=== PATIENT | male | born 1965 | race Caucasian/White ===

== ENCOUNTER 2018-06-16 12:53 | Inpatient (IN) | payer OTHER ==
[2018-06-16 13:27] VITALS: BMI 21.5
--- NOTE | 2018-06-16 13:46 | HP ---
COWS - Scale Resting Pulse: 1= [place] 81-100 Sweatin=Flushed/Facial Moisture Restless Observation: 1= Difficult to Sit Still Pupil Size: 0= Normal to Room Light Bone or Joint Aches: 2= Severe Diffuse Aches Runny Nose/ Eye Tearin= Runny Nose/Eyes GI Upset > 30mins: 2= Nausea/Diarrhea Tremor Observation: 0= None Yawning Observation: 0= None Anxiety or Irritability: 4=Extreme Anxiety Goose Flesh Skin: 0=Smooth Skin COWS Score: 14 CIWA Score - Admission Criteria OASAS Guidelines: Admission for Medically Managed Detox: Requires at least one of the followin. CIWA greater than 12 2. Seizures within the past 24 hours 3. Delirium tremens within the past 24 hours 4. Hallucinations within the past 24 hours 5. Acute intervention needed for co occurring medical disorder 6. Acute intervention needed for co occurring psychiatric disorder 7. Severe withdrawal that cannot be handled at a lower level of care (continued vomiting, continued diarrhea, abnormal vital signs) requiring intravenous medication and/or fluids 8. Admission ROS [facility] Allergies/Adverse Reactions: Allergies Allergy/AdvReac Type Severity Reaction Status Date / Time No Known Allergies Allergy Verified 06/16/18 14:38 History of Present Illness: patient here requesting detox from heroin use , reports for pain due to kidney stones , currently 10 bags/day via inhalation , denies IVDU , first use x 6 mo ago , latest use last night , current symptoms as above. cannabis : daily since age 26 xanax : reports 1 mg - 2 mg for insomnia, latest use 1 week ago etoh : 1 bottle wine last night , not daily , 3 x /week , denies symptoms if not drinking, denies seizures , blackouts, tremors , + DWI 8 years ago , has DL . PMHX : nephrolithiasis since age 23 recurrently , most recently 3 weeks ago had lithotripsy x 2 PShx : left knee ACL age 20 , nephrolithiasis age 23 , 30, 37 , 40 ,43 . PSych : anxiety tobacco use: 1-2 cigars/day since 1 year , 29 x 1 ppd SHx : lives alone , works as little . Exam Limitations: No Limitations - Ebola screening Have you traveled outside of the country in the last 21 days: No Have you had contact with anyone from an Ebola affected area: No Have you been sick,other than usual withdrawal symptoms: No - Review of Systems Constitutional: See HPI EENT: reports: Other (reading glasses , denies dysphagia) Respiratory: reports: No Symptoms reported Cardiac: reports: No Symptoms Reported GI: reports: See HPI : reports: See HPI Musculoskeletal: reports: Muscle Pain Integumentary: reports: No Symptoms Reported Neuro: reports: No Symptoms reported Endocrine: reports: No Symptoms Reported Psychiatric: reports: Orientated x3, Anxious Patient History - Smoking Cessation Smoking history: Current every day smoker Have you smoked in the past 12 months: Yes Aproximately how many cigarettes per day: 20 Cigars Per Day: 2 Hx Chewing Tobacco Use: No Initiated information on smoking cessation: No - Substances Abused Heroin Route: Inhalation Frequency: Daily Amount used: 10 bags Age of first use: 53 Date of Last Use: 06/15/18 Xanax Route: Oral Frequency: 3-6 times per week Amount used: 3-4 mg. Age of first use: 51 Date of Last Use: 05/26/18 Alcohol-vodka Route: Oral Frequency: Daily Amount used: 5 shots Age of first use: 17 Date of Last Use: 06/16/18 Family Disease History - Family Disease History Family Disease History: Diabetes: Father, Heart Disease: Father, CA: Mother ( lymphoma ), Other: Brother (4, 1 w/ Non-Hodgkin's lymphoma ), Sister (1 ) Admission Physical Exam S - Vital Signs Vital Signs: Vital Signs - 24 hr 06/16/18 13:22 Temperature 97.1 F L Pulse Rate 97 H Respiratory 20 Rate Blood Pressure 122/71 - Physical General Appearance: Yes: Disheveled, Mild Distress HEENTM: Yes: EOMI, Muffled/Hoarse Voice, Other (edentulous , many misisng teeth all upper) Respiratory: Yes: Chest Non-Tender, Lungs Clear, Normal Breath Sounds Neck: Yes: No masses,lesions,Nodules, Trachea in good position Breast: Yes: Breast Exam Deferred Cardiology: Yes: Regular Rhythm, Regular Rate, S1, S2, Tachycardia Abdominal: Yes: Normal Bowel Sounds, Soft Genitourinary: Yes: Pain (see HPI) Back: Yes: Normal Inspection, CVA Tenderness (R), CVA Tenderness (L) Musculoskeletal: Yes: full range of Motion, Gait Steady Extremities: Yes: Normal Capillary Refill, Non-Tender Neurological: Yes: Motor Strength 5/5 - Diagnostic (1) Opioid dependence Current Visit: Yes Status: Acute Qualifiers: Substance use status: in withdrawal Qualified Code(s): F11.23 - Opioid dependence with withdrawal (2) Nicotine dependence Current Visit: Yes Status: Acute Qualifiers: Nicotine product type: other (3) Cannabis dependence Current Visit: Yes Status: Chronic (4) Bilateral nephrolithiasis Current Visit: Yes Status: Chronic BHS Breath Alcohol Content Breath Alcohol Content: 0 Urine Drug Screen - Results Drug Screen Negative: No Urine Drug Screen Results: THC-Marijuana, OPI-Opiates, FEN-Fentanyl
[2018-06-16] MEDS ORDERED: POTASSIUM CITRATE/CITRIC ACID 2 MEQ/ML ML PO SCH (14:00)
[2018-06-16] MEDS ORDERED: MAG HYDROX/AL HYDROX/SIMETH 30 ML UNIT-DOSE CUP PO PRN (14:01)
[2018-06-16] MEDS ORDERED: MAGNESIUM CITRATE 300 ML BOTTLE PO PRN (14:01)
[2018-06-16] MEDS ORDERED: NICOTINE POLACRILEX 2 MG GUM BC PRN (14:01)
[2018-06-16] MEDS ORDERED: MAGNESIUM HYDROX 2400MG/30ML ORAL SUSPENSION 30 ML CUP PO PRN (14:01)
[2018-06-16] MEDS ORDERED: MENTHOL/PHENOL 1 EACH UD MM PRN (14:01)
[2018-06-16] MEDS ORDERED: guaiFENesin/D-METHORPHAN HB 10 ML UNIT-DOSE CUPS PO PRN (14:01)
[2018-06-16] MEDS ORDERED: ACETAMINOPHEN 325 MG TABLET (FP) PO PRN (14:01)
[2018-06-16] MEDS ORDERED: P-EPHED 60MG/TRIPROLIDI 2.5MG TABLET PO PRN (14:01)
[2018-06-16] MEDS ORDERED: METHADONE HCL 10 MG TABLET (FOR DETOX USE ONLY) PO ONE ×2 (16:45→23:00)
[2018-06-16] MEDS: CEPHALEXIN MONOHYDRATE 500 MG CAPSULE (UD) PO SCH ×2 (17:24→22:15)
[2018-06-16] MEDS ORDERED: diazePAM 5 MG TABLET PO PRN (18:33)
[2018-06-16] MEDS: POTASSIUM CITRATE/CITRIC ACID 2 MEQ/ML ML PO SCH ×2 (18:45→22:17)
[2018-06-16] MEDS ORDERED: diazePAM 5 MG TABLET PO ONE (19:00)
[2018-06-16] MEDS ORDERED: MELATONIN 5 MG TABLETS PO PRN (22:00)
[2018-06-16] MEDS: THIAMINE HCL 100 MG TABLET (FP) PO SCH (22:14)
[2018-06-16] MEDS: diazePAM 5 MG TABLET PO SCH (22:14)
[2018-06-17] MEDS: CEPHALEXIN MONOHYDRATE 500 MG CAPSULE (UD) PO SCH ×3 (05:53→22:13)
[2018-06-17] MEDS: diazePAM 5 MG TABLET PO SCH ×3 (05:53→22:13)
--- NOTE | 2018-06-17 07:42 | CONSULT ---
[facility] Psychiatric Consult - Data Date of interview: 06/17/18 Admission source: [facility] Identifying data: This is a 53 years old male, , has no children, living with family, unemployed, with no financial support, with no psychiatric hospitalization history, with long history of Alcohol, Xanax, Opioids and Nicotine dependence/abuse.Patient is reporting Alcohol and Opioids withdrawal symptoms and seeking for detox, denies suicidal, homicidal history. Substance Abuse History: Patient reports long, chronic history of Alcohol abuse , Opiopid dependence, Xanax dependex and Nicotine dependence as well.Reports multiple attempts to quit but with no success, motivatedto be referred to outpatient substance abuse facility upopn discharge, Medical History: Bilateral Nephrolithiasis, L. Knee ACLinjury and surgery history. Psychiatric History: Patient reports history of anxiety and depression, reports taking Trazodone 100mg po qhs prior to admission with good response and motivated to continue Trazodone during detox protocol. Physical/Sexual Abuse/Trauma History: Denies Additional Comment: Trazodone 100mg po qhs Mental Status Exam - Mental Status Exam Alert and Oriented to: Person Cognitive Function: Fair Patient Appearance: Unkempt Mood: Sad Affect: Mood Congruent Patient Behavior: Cooperative Speech Pattern: Clear Voice Loudness: Mildly Soft/Quiet Thought Process: Circumstantial, Goal Oriented Thought Disorder: Being Controlled Hallucinations: Denies Suicidal Ideation: Denies Homicidal Ideation: Denies Insight/Judgement: Fair Appetite: Weight loss Muscle strength/Tone: Mild Hypotonicity Gait/Station: Shuffling Additional Comments: Trazodone 100mg po qhs Psychiatric Findings - Problem List ([place] 1, 2,3) (1) Nicotine dependence Current Visit: Yes Status: Acute Qualifiers: Nicotine product type: other (2) Opioid dependence Current Visit: Yes Status: Acute Qualifiers: Substance use status: in withdrawal Qualified Code(s): F11.23 - Opioid dependence with withdrawal (3) Bilateral nephrolithiasis Current Visit: Yes Status: Chronic (4) Cannabis dependence Current Visit: Yes Status: Chronic - Initial Treatment Plan Initial Treatment Plan: Trazodone 100mg po qhs
[2018-06-17] MEDS: IBUPROFEN 400 MG TABLET (FP) PO PRN (09:44)
[2018-06-17] MEDS: POTASSIUM CITRATE/CITRIC ACID 2 MEQ/ML ML PO SCH ×4 (09:45→22:12)
[2018-06-17] MEDS: diazePAM 5 MG TABLET PO PRN (09:45)
[2018-06-17] MEDS: PRENATAL VITAMINS W/ FOLIC ACID TABLET (FP) PO SCH (09:48)
[2018-06-17] MEDS ORDERED: METHADONE HCL 10 MG TABLET (FOR DETOX USE ONLY) PO ONE (10:00)
[2018-06-17 10:34] LABS: ALK PHOS 74 U/L (45-117); ANION GAP 9 MMOL/L (8-16); BILIRUBIN,TOTAL 0.9 mg/dL (0.2-1); BLOOD UREA NITROGEN 9 mg/dL (7-18); CALCIUM 9.5 mg/dL (8.5-10.1); CHLORIDE 104 mmol/L (98-107); CO2 26 mmol/L (21-32); CREATININE 0.9 mg/dL (0.55-1.3); GLUCOSE,RANDOM 98 mg/dL (74-106); SGOT/AST 18 U/L (15-37); SGPT/ALT 45 U/L (13-61); SODIUM 138 mmol/L (136-145); TOT PROT 7.5 g/dl (6.4-8.2)
[2018-06-17 10:36] LABS: HEMATOCRIT 45.5 % (35.4-49); HEMOGLOBIN 15.5 GM/dL (11.7-16.9); MCHC 34.1 g/dl (32.0-35.9); MEAN CELL VOLUME 96.5 fl (80-96); MEAN PLT VOLUME 9.4 fl (7.5-11.1); PLATELET COUNT 226 K/MM3 (134-434); RBC 4.72 M/mm3 (4.00-5.60); RDW 14.4 % (11.9-15.9); WHITE BLOOD COUNT 8.6 K/mm3 (4.0-10.0)
--- NOTE | 2018-06-17 10:54 | PN ---
[facility] COWS - Scale Resting Pulse: 0= [place] 80 or Below Sweatin= No chills or Flushing Restless Observation: 1= Difficult to Sit Still Pupil Size: 0= Normal to Room Light Bone or Joint Aches: 4=Acute Joint/Muscle Pain Runny Nose/ Eye Tearin= None GI Upset > 30mins: 0= None Tremor Observation of Outstretched Hands: 0= None Yawning Observation: 0= None Anxiety or Irritability: 4=Extreme Anxiety Goose Flesh Skin: 3=Piloerection COWS Score: 12 BHS Progress Note (SOAP) Subjective: Body Aches, Anxious, Agitated, Interrupted Sleep. Patient Reports that he accidentally "Stubbed" the Big toe of his Right Foot earlier this AM on edge of door to his room. Objective: PATIENT A & O X 3, OBSERVED AMBULATING ON UNIT. IN NO ACUTE DISTRESS. SMALL ABRASION NOTED AT MEDIAL ASPECT OF BIG TOES OF RIGHT FOOT. SLIGHT SWELLING NOTED SURROUNDING SITE. NO BLEEDING OR UNUSUAL DISCHARGE NOTED AT SITE. 06/17/18 10:49 Vital Signs Temperature 96.4 F L 06/17/18 09:16 Pulse Rate 79 06/17/18 09:16 Respiratory Rate 18 06/17/18 09:16 Blood Pressure 117/74 06/17/18 09:16 O2 Sat by Pulse Oximetry (%) Laboratory Tests 06/17/18 06/17/18 06:00 06:00 WBC 8.6 RBC 4.72 Hgb 15.5 Hct 45.5 MCV 96.5 H MCH 33.0 MCHC 34.1 RDW 14.4 Plt Count 226 MPV 9.4 Sodium 138 Potassium 4.0 Chloride 104 Carbon Dioxide 26 Anion Gap 9 BUN 9 Creatinine 0.9 Creat Clearance w eGFR > 60 Random Glucose 98 Calcium 9.5 Total Bilirubin 0.9 AST 18 ALT 45 Alkaline Phosphatase 74 Total Protein 7.5 Albumin 4.0 LABS NOTED. RPR RESULTS PENDING. 06/17/18 10:52 06/17/18 10:54 Assessment: 06/17/18 10:49 WITHDRAWAL SYMPTOMS. Plan: CONTINUE DETOX. BACITRACIN FOR ABRASION ON BIG TOE OF RIGHT FOOT. R.I.C.E. PROTOCOL FOR INJURY OF BIG TOE OF RIGHT FOOT. PRN IBUPROFEN FOR PAIN OF BIG TOE OF RIGHT FOOT. X-RAY OF BIG TOE / 1ST METATARSAL BONE OF RIGHT TO R/O FRACTURE.
[2018-06-17] MEDS: BACITRACIN 0.9 GM PACKET TP SCH ×2 (13:03→23:08)
[2018-06-17] MEDS: traZODone HCL 100 MG TABLET (FP) PO SCH (22:12)
[2018-06-17] MEDS: THIAMINE HCL 100 MG TABLET (FP) PO SCH (22:12)
--- NOTE | 2018-06-17 23:28 | PN ---
S Progress Note Note: Patient w/ 10 mm x 5 mm superficial laceration at (R) great toe which occurred after stubbing toe earlier today. Now c/o foot being run-over by a rolling walker, with increased pain in area. No wound drainage, or swelling. Cap refill < 3 sec. Ecchymosis noted surrounding wound. Pedal pulse present. FROM toe. No crepitus of (R) great toe or increased tenderness when manipulated. No increased tenderness, erythema, discoloration, or swelling in other areas of foot. FWB. Gait steady. A: Disturbance of pre-existing laceration of (R) great toe. Plan: Bacitracin to site BID Encourage elevation. Ice to area, prn Pain medication, as prescribed, prn F/u, as needed.
[2018-06-18] MEDS: CEPHALEXIN MONOHYDRATE 500 MG CAPSULE (UD) PO SCH ×3 (05:36→22:35)
[2018-06-18] MEDS: diazePAM 5 MG TABLET PO PRN (05:38)
[2018-06-18] MEDS ORDERED: METHADONE HCL 5 MG TABLET (FOR DETOX USE ONLY) PO ONE (10:00)
[2018-06-18] MEDS: PRENATAL VITAMINS W/ FOLIC ACID TABLET (FP) PO SCH (10:29)
[2018-06-18] MEDS: IBUPROFEN 400 MG TABLET (FP) PO PRN (10:29)
[2018-06-18] MEDS: NICOTINE 14 MG/24 HOURS TOPICAL PATCH TD SCH (10:30)
[2018-06-18] MEDS: diazePAM 5 MG TABLET PO SCH ×2 (10:30→22:34)
[2018-06-18] MEDS: POTASSIUM CITRATE/CITRIC ACID 2 MEQ/ML ML PO SCH ×4 (10:31→22:37)
[2018-06-18] MEDS: BACITRACIN 0.9 GM PACKET TP SCH ×2 (10:31→22:34)
[2018-06-18] MEDS: CYCLOBENZAPRINE HCL 10 MG TABLET (FP) PO PRN (13:16)
--- NOTE | 2018-06-18 13:50 | PN ---
[facility] COWS - Scale Resting Pulse: 2= [place] 101-120 Sweatin= No chills or Flushing Restless Observation: 1= Difficult to Sit Still Pupil Size: 0= Normal to Room Light Bone or Joint Aches: 4=Acute Joint/Muscle Pain Runny Nose/ Eye Tearin= None GI Upset > 30mins: 2= Nausea/Diarrhea Tremor Observation of Outstretched Hands: 0= None Yawning Observation: 1= 1-2x During Session Anxiety or Irritability: 4=Extreme Anxiety Goose Flesh Skin: 0=Smooth Skin COWS Score: 14 S Progress Note (SOAP) Subjective: Anxious, Body Aches, H/A, Diarrhea. Objective: PATIENT A & O X 3, OBSERVED AMBULATING ON UNIT. IN NO ACUTE DISTRESS. 06/18/18 13:49 Vital Signs Temperature 97.5 F L 06/18/18 13:32 Pulse Rate 119 H 06/18/18 13:32 Respiratory Rate 18 06/18/18 13:32 Blood Pressure 121/72 06/18/18 13:32 O2 Sat by Pulse Oximetry (%) Laboratory Tests 06/17/18 06/17/18 06/17/18 06:00 06:00 06:00 WBC 8.6 RBC 4.72 Hgb 15.5 Hct 45.5 MCV 96.5 H MCH 33.0 MCHC 34.1 RDW 14.4 Plt Count 226 MPV 9.4 Sodium 138 Potassium 4.0 Chloride 104 Carbon Dioxide 26 Anion Gap 9 BUN 9 Creatinine 0.9 Creat Clearance w eGFR > 60 Random Glucose 98 Calcium 9.5 Total Bilirubin 0.9 AST 18 ALT 45 Alkaline Phosphatase 74 Total Protein 7.5 Albumin 4.0 RPR Titer Nonreactive LABS NOTED. Assessment: 06/18/18 13:49 WITHDRAWAL SYMPTOMS. Plan: CONTINUE DETOX. INCREASE DAILY PO FLUID INTAKE. PRN IMMODIUM FOR DIARRHEA. PRN FLEXERIL PO FOR BODY ACHES / MUSCLE SPASMS. PRN IBUPROFEN FOR PAIN IN BIG TOE OF RIGHT FOOT. CONTINUE BACITRACIN BID FOR WOUND ON BIG TOE OF RIGHT FOOT AND R.I.C.E. PROTOCOL FOR INJURY OF BIG TOE OF RIGHT FOOT. AFTER INCIDENT LAST NIGHT IN WHICH PATIENT REPORTED THAT THE BIG TOE OF HIS RIGHT FOOT WAS "RUN OVER BY A WALKER," PATIENT ADVISED TO HAVE X-RAY OF BIG TOE OF RIGHT FOOT DONE NOW. PATIENT AGREED TO DO SO. RESULTS PENDING.
[2018-06-18] MEDS: traZODone HCL 100 MG TABLET (FP) PO SCH (22:34)
[2018-06-18] MEDS: THIAMINE HCL 100 MG TABLET (FP) PO SCH (22:37)
[2018-06-19] MEDS: CEPHALEXIN MONOHYDRATE 500 MG CAPSULE (UD) PO SCH ×3 (06:15→22:16)
[2018-06-19] MEDS ORDERED: METHADONE HCL 10 MG TABLET (FOR DETOX USE ONLY) PO ONE (10:00)
[2018-06-19] MEDS: PRENATAL VITAMINS W/ FOLIC ACID TABLET (FP) PO SCH (10:39)
[2018-06-19] MEDS: diazePAM 5 MG TABLET PO SCH ×2 (10:40→22:16)
[2018-06-19] MEDS: POTASSIUM CITRATE/CITRIC ACID 2 MEQ/ML ML PO SCH ×4 (10:40→22:16)
[2018-06-19] MEDS: BACITRACIN 0.9 GM PACKET TP SCH ×2 (10:40→22:16)
[2018-06-19] MEDS: IBUPROFEN 400 MG TABLET (FP) PO PRN (10:41)
[2018-06-19] MEDS: CYCLOBENZAPRINE HCL 10 MG TABLET (FP) PO PRN (10:41)
[2018-06-19] MEDS: NICOTINE 14 MG/24 HOURS TOPICAL PATCH TD SCH (10:42)
--- NOTE | 2018-06-19 12:03 | PN ---
[facility] Progress Note (SOAP) Subjective: sweats anxiety Objective: 06/19/18 12:03 Vital Signs Temperature 98.2 F 06/19/18 09:15 Pulse Rate 105 H 06/19/18 09:15 Respiratory Rate 18 06/19/18 09:15 Blood Pressure 135/78 06/19/18 09:15 O2 Sat by Pulse Oximetry (%) aaox3 ambulating no acute distress Assessment: 06/19/18 12:03 withdrawal sx Plan: continue detox increase fluids d/c in am
[2018-06-19] MEDS: THIAMINE HCL 100 MG TABLET (FP) PO SCH (22:15)
[2018-06-19] MEDS: traZODone HCL 100 MG TABLET (FP) PO SCH (22:16)
[2018-06-20] MEDS: CYCLOBENZAPRINE HCL 10 MG TABLET (FP) PO PRN (03:34)
[2018-06-20] MEDS: CEPHALEXIN MONOHYDRATE 500 MG CAPSULE (UD) PO SCH (05:40)
[2018-06-20] MEDS ORDERED: METHADONE HCL 5 MG TABLET (FOR DETOX USE ONLY) PO ONE (06:00)
[2018-06-20] MEDS: PRENATAL VITAMINS W/ FOLIC ACID TABLET (FP) PO SCH (09:09)
[2018-06-20] MEDS: BACITRACIN 0.9 GM PACKET TP SCH (09:10)
[2018-06-20] MEDS: POTASSIUM CITRATE/CITRIC ACID 2 MEQ/ML ML PO SCH (09:13)
[2018-06-20 09:42] VITALS: BP 121/79; PULSE 100; TEMP 97.8
[2018-06-20] MEDS ORDERED: diazePAM 5 MG TABLET PO SCH (10:00)
--- NOTE | 2018-06-20 10:41 | DS ---
[facility] Detox Discharge Summary Admission Date: 06/16/18 Discharge Date: 06/20/18 - History Additional Comments: Patient is medically stable to be discharged to home. Patient is to follow up with a upper cutter out and PCP to evaluate elevated heart rate Pertinent Past History: Opioid dependence, cannabis dependence, nicotine dependence - Physical Exam Results Vital Signs: Vital Signs Temperature 97.8 F 06/20/18 09:41 Pulse Rate 100 H 06/20/18 09:41 Respiratory Rate 18 06/20/18 09:41 Blood Pressure 121/79 06/20/18 09:41 O2 Sat by Pulse Oximetry (%) Laboratory Last Values WBC 8.6 K/mm3 (4.0-10.0) 06/17/18 06:00 RBC 4.72 M/mm3 (4.00-5.60) 06/17/18 06:00 Hgb 15.5 GM/dL (11.7-16.9) 06/17/18 06:00 Hct 45.5 % (35.4-49) 06/17/18 06:00 MCV 96.5 fl (80-96) H 06/17/18 06:00 MCH 33.0 pg (25.7-33.7) 06/17/18 06:00 MCHC 34.1 g/dl (32.0-35.9) 06/17/18 06:00 RDW 14.4 % (11.9-15.9) 06/17/18 06:00 Plt Count 226 K/MM3 (134-434) 06/17/18 06:00 MPV 9.4 fl (7.5-11.1) 06/17/18 06:00 Sodium 138 mmol/L (136-145) 06/17/18 06:00 Potassium 4.0 mmol/L (3.5-5.1) 06/17/18 06:00 Chloride 104 mmol/L (98-107) 06/17/18 06:00 Carbon Dioxide 26 mmol/L (21-32) 06/17/18 06:00 Anion Gap 9 MMOL/L (8-16) 06/17/18 06:00 BUN 9 mg/dL (7-18) 06/17/18 06:00 Creatinine 0.9 mg/dL (0.55-1.3) 06/17/18 06:00 Creat Clearance w eGFR > 60 (>60) 06/17/18 06:00 Random Glucose 98 mg/dL (74-106) 06/17/18 06:00 Calcium 9.5 mg/dL (8.5-10.1) 06/17/18 06:00 Total Bilirubin 0.9 mg/dL (0.2-1) 06/17/18 06:00 AST 18 U/L (15-37) 06/17/18 06:00 ALT 45 U/L (13-61) 06/17/18 06:00 Alkaline Phosphatase 74 U/L (45-117) 06/17/18 06:00 Total Protein 7.5 g/dl (6.4-8.2) 06/17/18 06:00 Albumin 4.0 g/dl (3.4-5.0) 06/17/18 06:00 RPR Titer Nonreactive (NONREACTIVE) 06/17/18 06:00 Pertinent Admission Physical Exam Findings: withdrawal symptoms - Medication Discharge Medications: Ambulatory Orders Cephalexin [Keflex] 500 mg PO TID 06/16/18 Potassium Citrate/Citric Acid [Cytra-K Crystals Packet] 1 each PO QID 06/16/18 traZODone HCL [Desyrel -] 100 mg PO HS #30 tablet 06/17/18 - Diagnosis (1) Nicotine dependence Status: Acute Qualifiers: Nicotine product type: other (2) Opioid dependence Status: Acute Qualifiers: Substance use status: in withdrawal Qualified Code(s): F11.23 - Opioid dependence with withdrawal (3) Bilateral nephrolithiasis Status: Chronic (4) Cannabis dependence Status: Chronic - AMA Did Patient Leave Against Medical Advice: No
== END 2018-06-20 09:26 | disposition home or self-care (01) | DRG 773 ==
LOC: YASAS 12:53 → Y6N 15:46
PROVIDERS: ADMIT Neuromusculoskeletal Medicine & OMM; ATTEND Neuromusculoskeletal Medicine & OMM
PROC: HZ2ZZZZ Detoxification Services for Substance Abuse Treatment (ICD-10-PCS; principal; 2018-06-16)
DX: F11.23 Opioid dependence with withdrawal (principal); F12.20 Cannabis dependence, uncomplicated; F17.210 Nicotine dependence, cigarettes, uncomplicated; N20.0 Calculus of kidney; S90.411A Abrasion, right great toe, initial encounter; W22.8XXA Striking against or struck by other objects, initial encounter; Y93.89 Activity, other specified; Y92.230 Patient room in hospital as the place of occurrence of the external cause; Y99.8 Other external cause status
CPT/HCPCS: 36415; 73660-TC-FY; 80053; 85027; 86593